=== PATIENT | female | born 1940 | race Caucasian/White ===

== ENCOUNTER → 2024-03-19 10:59 | Outpatient (REF) | payer OTHER, SELFPAY | LOC: HWRCS 10:59 | PROVIDERS: ATTENDING PHYSICIAN Family Medicine | DX: I10 Essential (primary) hypertension (principal) | CPT/HCPCS: 93306 ==

== ENCOUNTER → 2024-03-29 09:27 | Outpatient (REF) | payer OTHER, SELFPAY | LOC: HWRAD 09:27 | PROVIDERS: ATTENDING PHYSICIAN Internal Medicine Rheumatology; FAMILY PHYSICIAN Family Medicine | DX: Z12.31 Encounter for screening mammogram for malignant neoplasm of breast (principal); M81.0 Age-related osteoporosis without current pathological fracture; Z13.820 Encounter for screening for osteoporosis | CPT/HCPCS: 77063; 77067; 77080 ==

== ENCOUNTER → 2024-09-16 10:23 | Outpatient (REF) | payer OTHER, SELFPAY | LOC: HWRAD 10:23 | PROVIDERS: ATTENDING PHYSICIAN Family Medicine | DX: M54.50 Low back pain, unspecified (principal) | CPT/HCPCS: 72110 ==

== ENCOUNTER → 2024-11-09 08:56 | Outpatient (REF) | payer OTHER, SELFPAY | LOC: PAVMRI 08:56 | PROVIDERS: ATTENDING PHYSICIAN Family Medicine | DX: M21.372 Foot drop, left foot (principal); R29.898 Other symptoms and signs involving the musculoskeletal system; R20.2 Paresthesia of skin; M54.16 Radiculopathy, lumbar region | CPT/HCPCS: 72148 ==

== ENCOUNTER → 2025-06-24 09:06 | Outpatient (REF) | payer OTHER, SELFPAY | LOC: EMG 09:06 | PROVIDERS: ATTENDING PHYSICIAN Physician Assistant | DX: M54.16 Radiculopathy, lumbar region (principal); M21.372 Foot drop, left foot; R20.0 Anesthesia of skin | CPT/HCPCS: 95886; 95910 ==